=== PATIENT | female | born 1985 | race Caucasian/White ===

== ENCOUNTER 2017-08-21 17:08 | Emergency (ER) | payer OTHER ==
[~2017-08-21] VITALS: Ht 165.1 cm; Wt 56.3 kg
[2017-08-21] MEDS ORDERED: IBUPROFEN400 MG PO (17:58)
[2017-08-21] MEDS ORDERED: KETOROLAC TROMETHAMINE 60 MG/2 ML VIAL IM ONE (18:00)
== END 2017-08-21 18:30 | disposition home or self-care (01) ==
LOC: FSED 17:08
DX: M54.5 Low back pain (principal); M25.551 Pain in right hip; S30.1XXA Contusion of abdominal wall, initial encounter; W22.09XA Striking against other stationary object, initial encounter; Y93.K1 Activity, walking an animal; Y92.89 Other specified places as the place of occurrence of the external cause
CPT/HCPCS: 99282; J1885